=== PATIENT | male | born 1930 | race Caucasian/White ===

== ENCOUNTER 2018-10-19 02:17 | Inpatient (IN) | payer BC ==
[2018-10-19] VITALS (7 sets, daily range): BP systolic 101–145; BP diastolic 47–70
[~2018-10-19] VITALS: Ht 167.6 cm; Wt 75.3 kg
[~2018-10-19 02:17] MED LIST: OXYC10TA59 PO; TRAM50TA2 PO
--- NOTE | 2018-10-19 02:50 | NUR ---
HVAC INSTALLATION TECHNICIAN OPENING NOTES RECEIVED PT FROM [facility]. ACCOMPANIED BY FAMILY SON AND DAUGHTER. PT IS AWAKE ALERT ORIENTED X2-3 HARD OF HEARING BILATERAL HEARING DEVICES IN PLACE. BREATHING EVEN AND UNLABORED ON ROOM AIR. NO SOB NOTED. NO COMPLAINT OF PAIN OR DISCOMFORT AT THE MOMENT. IV ACCESS ON THE R FA 20G PATENT AND FLUSHING. BED IN LOWEST LOCKED POSITION, CALL LIGHT WITHIN REACH AT ALL TIMES, AWAITING ADMITTING ORDERS FROM .
[2018-10-19] MEDS ORDERED: ENAL10TA PO (03:37)
[2018-10-19] MEDS ORDERED: DIVA-78 PO ×2 (03:37)
[2018-10-19] MEDS ORDERED: CITA20TA16 PO (03:37)
[2018-10-19] MEDS ORDERED: ACETAMINOPHEN 325 MG TABLET PO PRN (04:00)
[2018-10-19] MEDS ORDERED: ONDANSETRON HCL/PF 4 MG/2 ML VIAL IVP PRN (04:00)
[2018-10-19] MEDS ORDERED: MAGNESIUM HYDROXIDE 30 ML UDC PO PRN (04:00)
[2018-10-19] MEDS ORDERED: MAG HYDROX/AL HYDROX/SIMETH 30 ML UDC PO PRN (04:00)
[2018-10-19] MEDS ORDERED: TRAMADOL HCL 50 MG TABLET PO PRN (04:00)
[2018-10-19] MEDS ORDERED: Z GUARD REMEDY 2 OZ OINT TP PRN (04:00)
[2018-10-19] MEDS: IV D5/0.45 NACL 1,000 ML IV PRN (04:17)
[2018-10-19] MEDS ORDERED: METRONIDAZOLE 500MG/ NS 100ML 100 ML IV ONE (04:26)
[2018-10-19 04:37] LABS: BASOPHILS % (AUTO) 0.5 % (0.0-2.0); HEMATOCRIT 40 % (39-51); HEMOGLOBIN 13.1 g/dL (13.5-17.5); LYMPHOCYTES # (AUTO) 1.6 /CMM (0.8-4.8); LYMPHOCYTES % (AUTO) 16.4 % (20.0-44.0); MEAN CORPUSCULAR HGB CONC 33 g/dl (31.0-36.0); MEAN CORPUSCULAR VOLUME 84 fL (80-96); MONOCYTES # (AUTO) 0.5 /CMM (0.1-1.30); MONOCYTES % (AUTO) 5.6 % (2.0-12.0); NEUTROPHILS # (AUTO) 7.6 /CMM (1.8-8.9); NEUTROPHILS % (AUTO) 77.5 % (43.0-81.0); PLATELET COUNT (AUTO) 203 /CMM (150-450); RED BLOOD CELL COUNT(AUTO) 4.77 MIL/uL (4.5-6.0); WHITE BLOOD COUNT (AUTO) 9.8 K/uL (4.3-11.0)
[2018-10-19] MEDS: METRONIDAZOLE 500MG/ NS 100ML 500 MG in PREMIX 1 EA IV SCH ×3 (04:37→21:13)
[2018-10-19 04:49] LABS: ALANINE AMINOTRANSFERASE 22 U/L (12-78); ALBUMIN 3.4 g/dL (3.4-5.0); ALKALINE PHOSPHATASE 48 U/L (46-116); ASPARTATE AMINOTRANSFERASE 17 U/L (15-37); BILIRUBIN,TOTAL 0.7 mg/dL (0.2-1.0); CALCIUM, SERUM 8.5 mg/dL (8.5-10.1); CARBON DIOXIDE 24 mmol/L (21-32); CHLORIDE 104 mmol/L (98-107); CREATININE 0.8 mg/dL (0.6-1.3); GLUCOSE 120 mg/dL (74-106); MAGNESIUM 1.9 mg/dL (1.8-2.4); PHOSPHORUS 3.6 mg/dL (2.5-4.9); POTASSIUM 4.3 mmol/L (3.5-5.1); SODIUM SERUM 139 mmol/L (136-145); TOTAL PROTEIN, SERUM 6.8 g/dL (6.4-8.2); UREA NITROGEN, BLOOD 11 mg/dL (7-18)
[2018-10-19 05:12] LABS: CHOLESTEROL 224 mg/dL (<200); HDL CHOLESTEROL 54 mg/dL (40-60); LDL 149 mg/dL (0-99); THYROID STIMULATING HORMONE 1.119 uIU/mL (0.358-3.74); TRIGLYCERIDES 107 mg/dL (30-150)
--- NOTE | 2018-10-19 06:27 | NUR ---
PACKAGE LINE RELIEF OPERATOR OPENING NOTES PT REMAINS IN BED IS AWAKE ALERT ORIENTED X2-3, FORGETFUL AND RESTLESS. BREATHING EVEN AND UNLABORED ON ROOM AIR. NO SOB NOTED. NO COMPLAINT OF PAIN OR DISCOMFORT AT THE MOMENT. IV ACCESS ON THE R FA 20G WITH D51/2NS @75ML/HR. BED IN LOWEST LOCKED POSITION, CALL LIGHT WITHIN REACH AT ALL TIMES WILL ENDORSE TO DAY NURSE FOR LU
[2018-10-19] MEDS ORDERED: PANTOPRAZOLE 40 MG VIAL IV SCH (07:30)
--- NOTE | 2018-10-19 08:00 | NUR ---
SWITCHGEAR REPAIRER OPENING NOTES Received Patient comfortable and resting in bed. A/O x 2. VS stable with no acute distress. Breathing even and unlabored on room air with no acute distress. Denies pain. Telemonitor in place and operational, reading SR with HR in the 60s. 20g PIV on RFA clean, dry, intact and flushing well with IVF D51/2NS running at 75ml/hr. Safety precautions in place. Bed locked and set to lowest position with side rails x 2 up. All needs rendered at this time. Will continue to monitor.
[2018-10-19] MEDS: DIVALPROEX SODIUM 250 MG TABLET.DR PO SCH ×2 (09:00→09:34)
[2018-10-19] MEDS: ENALAPRIL MALEATE (10 MG) 10 MG TABLET PO SCH ×2 (09:00→17:07)
[2018-10-19] MEDS ORDERED: CIPROFLOXACIN IV RTU 400 MG in PREMIX 1 EA IV SCH (09:00)
[2018-10-19] MEDS: FAMOTIDINE/PF INJ 20 MG/2 ML VIAL IV SCH ×2 (09:34→21:08)
[2018-10-19] MEDS: CIPROFLOXACIN IV RTU 400 MG in PREMIX 1 EA IV SCH ×2 (09:34→20:04)
--- NOTE | 2018-10-19 19:20 | NUR ---
RN OPENING NOTES Received patient in bed, alert, oriented x 2. Breathing even and unlabored. Not in any distress, on room air. Patient pulled out IV line. Safety measures in place; call lemus within easy reach. Bed in low, locked position, siderails x 3 up, bed alarm on. Will continue to monitor accordingly
--- NOTE | 2018-10-19 19:32 | NUR ---
DINING ROOM MAID CLOSING NOTES Patient comfortable and resting in bed. A/O x 1 with episodes of confusion. VS stable with no acute distress. Breathing even and unlabored on room air with no acute distress. Denies pain. Patient pulled out PIV. Will endorse to oncoming shift. Safety precautions in place. Bed locked and set to lowest position with side rails x 2 up. Bed alarm in place and operational. All needs rendered at this time. Will endorse plan of care to oncoming shift.
--- NOTE | 2018-10-19 19:45 | NUR ---
RN NOTES New IV line on left forearm g#24 inserted with good blood return.
--- NOTE | 2018-10-19 20:30 | NUR ---
Met with patient at bedside, states he lives locally with his son and daughter in law in a single level home. States he ambulates with a cane and semi-independent with adl's. His goes to [place] for pcp visits and follow up. His family will provide ride when discharge. Addendum: 10/19/18 at 2030 by ALEXANDER BARRERA RN Amended: Links added.
--- NOTE | 2018-10-19 20:31 | NUR ---
Met with patient at bedside, states he lives locally with his son and daughter in law in a single level home. States he ambulates with a cane and semi-independent with adl's. His goes to [place] for pcp visits and follow up. His family will provide ride when discharge. Addendum: 10/19/18 at 2030 by ALEXANDER BARRERA RN Amended: Links added.
[2018-10-19] MEDS: CITALOPRAM HYDROBROMIDE 20 MG TABLET PO SCH (21:09)
[2018-10-19] MEDS: DIVALPROEX SODIUM 500 MG TABLET.DR PO SCH (21:09)
[2018-10-19] MEDS: ZOLPIDEM TARTRATE 5 MG TABLET PO PRN (22:03)
[2018-10-20] MEDS: IV D5/0.45 NACL 1,000 ML IV PRN ×2 (00:42→20:15)
[2018-10-20] MEDS: METRONIDAZOLE 500MG/ NS 100ML 500 MG in PREMIX 1 EA IV SCH ×3 (04:25→21:04)
--- NOTE | 2018-10-20 07:05 | NUR ---
MS RN CLOSING NOTES Patient resting in bed, alert, oriented x 4. Not in any distress. Peripheral IV infusing at 75mL/hr. No acute changes overnight. All needs attended and anticipated. Safety measures in place. Will endorse LU to oncoming RN
[2018-10-20 07:21] LABS: BASOPHILS % (AUTO) 0.3 % (0.0-2.0); EOSINOPHILS % (AUTO) 2.3 % (0.0-6.0); HEMATOCRIT 37 % (39-51); LYMPHOCYTES # (AUTO) 1.8 /CMM (0.8-4.8); LYMPHOCYTES % (AUTO) 29.5 % (20.0-44.0); MEAN CORPUSCULAR HGB CONC 33 g/dl (31.0-36.0); MEAN CORPUSCULAR VOLUME 83 fL (80-96); MONOCYTES # (AUTO) 0.6 /CMM (0.1-1.30); NEUTROPHILS # (AUTO) 3.7 /CMM (1.8-8.9); NEUTROPHILS % (AUTO) 58.9 % (43.0-81.0); PLATELET COUNT (AUTO) 183 /CMM (150-450); RED BLOOD CELL COUNT(AUTO) 4.38 MIL/uL (4.5-6.0); WHITE BLOOD COUNT (AUTO) 6.3 K/uL (4.3-11.0)
[2018-10-20 07:46] LABS: CALCIUM, SERUM 7.9 mg/dL (8.5-10.1); CARBON DIOXIDE 27 mmol/L (21-32); CHLORIDE 106 mmol/L (98-107); CREATININE 0.8 mg/dL (0.6-1.3); GLUCOSE 98 mg/dL (74-106); MAGNESIUM 1.8 mg/dL (1.8-2.4); PHOSPHORUS 3.5 mg/dL (2.5-4.9); POTASSIUM 3.6 mmol/L (3.5-5.1); SODIUM SERUM 141 mmol/L (136-145); UREA NITROGEN, BLOOD 9 mg/dL (7-18)
--- NOTE | 2018-10-20 07:53 | NUR ---
MS RN OPENING NOTES Received Patient resting and asleep in bed. A/O x 1 with episodes of confusion. VS stable with no acute distress. Breathing even and unlabored on room air with no acute distress. Denies pain. 24g PIV on LFA clean, dry, intact and flushing well with D51/2NS running at 75ml/hr. Noted hearing aid on LEFT EAR. And second hearing aid in case by bedside. Safety precautions in place. Bed locked and set to lowest position with side rails x 2 up. Bed alarm in place and operational. All needs rendered at this time. Will continue to monitor.
[2018-10-20 08:00] VITALS: BP 122/64
[2018-10-20] MEDS: ENALAPRIL MALEATE (10 MG) 10 MG TABLET PO SCH ×2 (09:00→16:47)
[2018-10-20] MEDS: CIPROFLOXACIN IV RTU 400 MG in PREMIX 1 EA IV SCH ×2 (09:49→20:04)
[2018-10-20] MEDS: FAMOTIDINE/PF INJ 20 MG/2 ML VIAL IV SCH ×2 (09:50→21:11)
[2018-10-20 16:00] VITALS: BP 142/62
--- NOTE | 2018-10-20 19:50 | NUR ---
MS RN CLOSING NOTES Patient resting and asleep in bed. A/O x 1 with episodes of confusion. VS stable with no acute distress. Breathing even and unlabored on room air with no acute distress. Patient stated mild pain but refuses pain medication. Provided water and snacks and turned light off. Will endorse to oncoming shift. 24g PIV on LFA clean, dry, intact and flushing well with D51/2NS running at 75ml/hr. Noted hearing aid on RIGHT EAR. And second hearing aid in a case by bedside. Safety precautions in place. Bed locked and set to lowest position with side rails x 2 up. Bed alarm in place and operational. All needs rendered at this time. Will endorse plan of care to oncoming shift.
--- NOTE | 2018-10-20 19:51 | NUR ---
MS/RN OPENING NOTES RECEIVED PATIENT IN BED, RESPIRATIONS EVEN AND UNLABORED, RESTING COMFORTABLY,MONITOIRNG FOR ANY CHANGES, BED LOCKED, CALL LIGHTS WITHIN REACH. WILL MONITOR. RECEIVED ENDORSEMENT FROM AM RN FOR LU. IV LFA GAUGE 24 RUNNING D5 1/2 NS AT 75 ML/HR.
[2018-10-20 20:00] VITALS: BP 170/72
--- NOTE | 2018-10-20 20:01 | NUR ---
VITAL SIGNS TO BE RECHECKED, PATIENT REFUSE TO HAVE BLOOD PRESSURE RETAKEN TO MONITOR AND CHECK AGAIN .DENIES PAIN, REPORTED WANTS TO SLEEP FOR NOW.
[2018-10-20] MEDS: CITALOPRAM HYDROBROMIDE 20 MG TABLET PO SCH (22:10)
[2018-10-20] MEDS: DIVALPROEX SODIUM 500 MG TABLET.DR PO SCH (22:10)
[2018-10-21] MEDS: HYDROCODONE/APAP 5/325MG 1 EACH TABLET PO PRN ×2 (03:40→22:17)
--- NOTE | 2018-10-21 03:42 | NUR ---
PATIENT AWOKEN FROM SLEEP, REPORTED SEVERE PAIN 8/10 GENERALIZED PAIN, REPOSITIONED F OR COMFORT, AND PAIN MEDICATION NORCO 5-325 MG PO GIVEN. BP CHECK AT 156/75, PULSE 60
[2018-10-21 03:43] VITALS: BP 156/75
[2018-10-21] MEDS: METRONIDAZOLE 500MG/ NS 100ML 500 MG in PREMIX 1 EA IV SCH (04:21)
--- NOTE | 2018-10-21 06:43 | NUR ---
326-2 MS/RN NOTES PATIENT IN BED, AWAKE, ALERT X3, CAN VERBALIZE NEEDS . KEPT SKIN INTACT DRY. able to sleep during the night. on pain management monitoring, last pain medication given early in morning. iv fluids administered, monitored for any changes. will endorse to am rn for marycruz.
[2018-10-21 06:45] LABS: BASOPHILS % (AUTO) 0.3 % (0.0-2.0); EOSINOPHILS % (AUTO) 2.1 % (0.0-6.0); HEMATOCRIT 37 % (39-51); HEMOGLOBIN 12.3 g/dL (13.5-17.5); LYMPHOCYTES # (AUTO) 1.5 /CMM (0.8-4.8); LYMPHOCYTES % (AUTO) 23.7 % (20.0-44.0); MEAN CORPUSCULAR HGB CONC 33 g/dl (31.0-36.0); MEAN CORPUSCULAR VOLUME 83 fL (80-96); MONOCYTES # (AUTO) 0.6 /CMM (0.1-1.30); MONOCYTES % (AUTO) 9.5 % (2.0-12.0); NEUTROPHILS % (AUTO) 64.4 % (43.0-81.0); PLATELET COUNT (AUTO) 189 /CMM (150-450); RED BLOOD CELL COUNT(AUTO) 4.44 MIL/uL (4.5-6.0); WHITE BLOOD COUNT (AUTO) 6.2 K/uL (4.3-11.0)
[2018-10-21 07:13] LABS: CALCIUM, SERUM 7.9 mg/dL (8.5-10.1); CARBON DIOXIDE 27 mmol/L (21-32); CHLORIDE 108 mmol/L (98-107); CREATININE 0.8 mg/dL (0.6-1.3); GLUCOSE 112 mg/dL (74-106); MAGNESIUM 1.8 mg/dL (1.8-2.4); PHOSPHORUS 3.8 mg/dL (2.5-4.9); POTASSIUM 3.7 mmol/L (3.5-5.1); SODIUM SERUM 143 mmol/L (136-145); UREA NITROGEN, BLOOD 9 mg/dL (7-18)
[2018-10-21 08:00] VITALS: BP 153/76
--- NOTE | 2018-10-21 08:00 | NUR ---
MS RN OPENING NOTES Received Patient resting and asleep in bed. A/O x 2 with episodes of confusion. VS stable with no acute distress. Breathing even and unlabored on room air with no acute distress. Denies pain. 24g PIV on LFA clean, dry, intact and flushing well with D51/2NS running at 75ml/hr. Bilateral hearing aids in place. Safety precautions in place. Bed locked and set to lowest position with side rails x 2 up. Bed alarm in place and operational. All needs rendered at this time. Will continue to monitor.
[2018-10-21] MEDS: DIVALPROEX SODIUM 250 MG TABLET.DR PO SCH (09:31)
[2018-10-21] MEDS: CIPROFLOXACIN IV RTU 400 MG in PREMIX 1 EA IV SCH (09:31)
[2018-10-21] MEDS: FAMOTIDINE/PF INJ 20 MG/2 ML VIAL IV SCH ×2 (09:31→20:45)
[2018-10-21] MEDS: ENALAPRIL MALEATE (10 MG) 10 MG TABLET PO SCH ×2 (09:32→17:07)
[2018-10-21] MEDS: METRONIDAZOLE 500 MG TABLET PO SCH ×2 (13:27→20:45)
[2018-10-21 16:00] VITALS: BP 136/63
[2018-10-21] MEDS: IV D5/0.45 NACL 1,000 ML IV PRN (18:15)
--- NOTE | 2018-10-21 19:36 | NUR ---
MS RN CLOSING NOTES Patient resting and asleep in bed. A/O x 3 with episodes of confusion. VS stable with no acute distress. Breathing even and unlabored on room air with no acute distress. 24g PIV on LFA clean, dry, intact and flushing well with D51/2NS running at 75ml/hr. Bilateral hearing aids in place. Safety precautions in place. Bed locked and set to lowest position with side rails x 2 up. Bed alarm in place and operational. All needs rendered at this time. Will endorse plan of care to oncoming shift.
[2018-10-21 20:00] VITALS: BP 133/54
[2018-10-21] MEDS: CIPROFLOXACIN HCL 500 MG TABLET PO SCH (20:45)
[2018-10-21] MEDS ORDERED: CIPROFLOXACIN HCL 250 MG TABLET PO SCH (21:00)
[2018-10-21] MEDS: DIVALPROEX SODIUM 500 MG TABLET.DR PO SCH (21:11)
[2018-10-21] MEDS: CITALOPRAM HYDROBROMIDE 20 MG TABLET PO SCH (21:11)
--- NOTE | 2018-10-22 02:00 | NUR ---
RN NOTE RECEIVED AN ORDER FROM SANDIE PRATT TO STOP IV D5 1/2 NS, ORDER WAS CARRIED OUT
--- NOTE | 2018-10-22 03:00 | NUR ---
RN NOTE PATIENT REMOVED IV, REFUSED INSERTION OF NEW IV, NO S/S OF INFECTION/REDNESS NOTED, EXPLAINED ALL RISKS AND BENEFITS, STILL REFUSED, NOTIFIED SANDIE PRATT, CHARGE NURSE IS AWARE
[2018-10-22] MEDS ORDERED: HALOPERIDOL LACTATE INJ 5 MG/ML VIAL IM ONE (03:30)
--- NOTE | 2018-10-22 03:30 | NUR ---
RN NOTE EPISODE OF AGITATION NOTED, REMOVING CLOTH/SCREAMING, UNSTEADY GAIT DOES NOT WANT TO GET BACK TO BED, CALMLY APPROACHED PATIENT, EXPLAINED BENEFITS OF GETTING BACK TO BED,CHARGE NURSE IS BY BEDSIDE, NOTIFIED SANDIE PRATT, NEW ORDER GIVEN
--- NOTE | 2018-10-22 03:30 | NUR ---
RN NOTE EPISODE OF AGITATION NOTED, PATIENT REMOVED CLOTH, UNSTEADY GAIT, SCREAMING AND DOES NOT WANT TO GET BACK TO BED, CALMLY APPROACHED PATIENT TO GET BACK TO BED, EXPLAINED BENEFITS OF GETTING BACK TO BED, CHARGE NURSE IS BY BEDSIDE, NOTIFIED SANDIE PRATT, NEW ORDER IS GIVEN
[2018-10-22] MEDS: METRONIDAZOLE 500 MG TABLET PO SCH ×3 (04:04→21:24)
--- NOTE | 2018-10-22 07:59 | NUR ---
RN OPENING NOTES PT RESTING IN BED. NO COMPLAINTS OF PAIN, SOB OR DISTRESS AT THIS TIME. PT REMOVED IV LAST NIGHT AND REFUSED INSERTION OF NEW ONE. MD HOOPER AWARE. SAFETY PRECAUTIONS IN PLACE, BED IN LOWEST LOCKED POSITION, X2 SIDE RAILS UP AND CALL LIGHT WITHIN REACH. WILL CONTINUE TO MONITOR.
[2018-10-22 08:00] VITALS: BP 163/59
[2018-10-22] MEDS: ENALAPRIL MALEATE (10 MG) 10 MG TABLET PO SCH ×2 (08:54→17:04)
[2018-10-22] MEDS: DIVALPROEX SODIUM 250 MG TABLET.DR PO SCH (08:54)
[2018-10-22] MEDS: CIPROFLOXACIN HCL 500 MG TABLET PO SCH ×2 (08:54→21:23)
[2018-10-22] MEDS: FAMOTIDINE (20 MG) 20 MG TABLET PO SCH ×2 (08:54→21:24)
[2018-10-22 09:00] VITALS: BP 163/59
--- NOTE | 2018-10-22 09:30 | NUR ---
RN NOTES MD AWARE PT DOES NOT HAVE IV ACCESS AND IS REFUSING. CHANGED ORDER FOR IV PEPCID TO PO.
[2018-10-22 16:00] VITALS: BP 143/83
--- NOTE | 2018-10-22 19:15 | NUR ---
MS RN NOTES RECEIVED PT IN BED AWAKE AND ABLE TO MAKE NEEDS KNOWN. PT A/O X2 WITH PERIODS OF CONFUSION. RESPIRATIONS EVEN AND UNLABORED WITH NO S/S OF ACUTE DISTRESS OR SOB NOTED. NO COMPLAINTS OF PAIN AT THIS TIME. PT WITH NO IV ACCESS NOTED. SAFETY MEASURES IN PLACE WITH WITH NO SIDE RAILS UP X2. PT TO D/C TOMORROW. CALL LIGHT WITHIN REACH. WILL CONTINUE TO MONITOR.
--- NOTE | 2018-10-22 19:39 | NUR ---
RN CLOSING NOTES PT RESTING IN BED. PT CONFUSED. NO COMPLAINTS OF PAIN, SOB OR DISTRESS AT THIS TIME. PT REMOVED IV LAST NIGHT AND REFUSED INSERTION OF NEW ONE. MD AWARE. SAFETY PRECAUTIONS IN PLACE, BED IN LOWEST LOCKED POSITION, X3 SIDE RAILS UP AND CALL LIGHT WITHIN REACH. WILL ENDORSE TO DERMATOPATHOLOGIST NURSE FOR CONTINUITY OF CARE.
[2018-10-22 20:00] VITALS: BP 145/50
[2018-10-22] MEDS: DIVALPROEX SODIUM 500 MG TABLET.DR PO SCH (21:24)
[2018-10-22] MEDS: ZOLPIDEM TARTRATE 5 MG TABLET PO PRN (21:24)
[2018-10-22] MEDS: CITALOPRAM HYDROBROMIDE 20 MG TABLET PO SCH (21:26)
[2018-10-23] MEDS: METRONIDAZOLE 500 MG TABLET PO SCH ×3 (05:16→20:33)
--- NOTE | 2018-10-23 06:57 | NUR ---
MS RN NOTES PT IN BED SLEEPING BUT EASILY AWOKEN VERBALLY OR BY TOUCH. PT A/O X2 WITH PERIODS OF CONFUSION BUT AND ABLE TO MAKE NEEDS KNOWN. RESPIRATIONS EVEN AND UNLABORED WITH NO S/S OF ACUTE DISTRESS OR SOB NOTED THROUGHOUT SHIFT. NO COMPLAINTS OF PAIN AT THIS TIME. PT WITH NO IV ACCESS NOTED. PT KEPT CLEAN, DRY, AND COMFORTABLE. SAFETY MEASURES IN PLACE WITH WITH NO SIDE RAILS UP X2. PT TO D/C TOMORROW. CALL LIGHT WITHIN REACH. WILL ENDORSE TO ONCOMING NURSE FOR LU.
--- NOTE | 2018-10-23 07:34 | NUR ---
MS/RN OPENING NOTE PATIENT IN BED IN STABLE CONDITION. A/O X 2 WITH EPISODES OF CONFUSION AND FORGETFULNESS. NO SIGNS OF ACUTE DISTRESS. NO COMPLAIN OF PAIN OR DISCOMFORT. ALL NEEDS ATTENDED TO. CALL LIGHT WITHIN REACH. WILL CONTINUE TO MONITOR TO ENSURE SAFETY.
[2018-10-23 08:00] VITALS: BP 116/96
[2018-10-23] MEDS: CIPROFLOXACIN HCL 500 MG TABLET PO SCH ×2 (08:44→20:33)
[2018-10-23] MEDS: ENALAPRIL MALEATE (10 MG) 10 MG TABLET PO SCH ×2 (08:44→17:23)
[2018-10-23] MEDS: DIVALPROEX SODIUM 250 MG TABLET.DR PO SCH (08:44)
[2018-10-23] MEDS: FAMOTIDINE (20 MG) 20 MG TABLET PO SCH ×2 (08:44→20:33)
--- NOTE | 2018-10-23 14:02 | NUR ---
BRENDA was informed by director case Nikki Lentz to meet with her and pt's son Tomas regarding increasing S[employer] benefits. BRENDA and Nikki Lentz met with pt. bedside. BRENDA informed pt's son Tomas that he would have to reach out to [employer] office regarding increase of benefits and to reach out to the [facility] since pt. is a . Tomas stated the [facility] will assist with a maximum of $1800 for home care. Tomas also informed BRENDA and Nikki Lentz that he would like to place pt. in [facility] assisted living, dementia unit, however the cost is $7000/ month. He stated, he can afford that with the savings they have but once the savings in depleted, he might have to sell the house so he can afford to pay for the pt. to stay at [facility]. He stated, he is going to go tour the facility and will then decide.
[2018-10-23 16:00] VITALS: BP 116/80
--- NOTE | 2018-10-23 18:24 | NUR ---
MS/RN CLOSING NOTE PATIENT IN BED IN STABLE CONDITION. A/O X 2 WITH EPISODES OF CONFUSION AND FORGETFULNESS. NO SIGNS OF ACUTE DISTRESS. NO COMPLAIN OF PAIN OR DISCOMFORT. ALL NEEDS ATTENDED TO. CALL LIGHT WITHIN REACH. WILL ENDORSE TO NEXT SHIFT FOR CONTINUITY OF CARE.
--- NOTE | 2018-10-23 20:00 | NUR ---
MS RN NOTES PATIENT ASLEEP IN BED WITH NO DISTRESS NOTED. CALL LIGHT WITHIN REACH. NO C/O PAIN OR DISCOMFORT. PERIPHERAL LINE INTACT AND PATENT. BED IN LOW LOCK SETTING. BED ALARM ON AND FUNCTIONING PROPERLY. ROOM FREE OF CLUTTER AND BELONGINGS KEPT NEAR BEDSIDE. WILL CONTINUE TO MONITOR.
[2018-10-23 20:24] VITALS: BP 147/73
[2018-10-23] MEDS: HYDROCODONE/APAP 5/325MG 1 EACH TABLET PO PRN (20:34)
[2018-10-23] MEDS: CITALOPRAM HYDROBROMIDE 20 MG TABLET PO SCH (21:08)
[2018-10-23] MEDS: DIVALPROEX SODIUM 500 MG TABLET.DR PO SCH (21:09)
[2018-10-24] MEDS: METRONIDAZOLE 500 MG TABLET PO SCH ×3 (05:25→22:54)
--- NOTE | 2018-10-24 05:56 | NUR ---
MS RN NOTES PATIENT ASLEEP IN BED WITH NO DISTRESS NOTED. CALL LIGHT WITHIN REACH. ALL DUE MEDS GIVEN ORDERED WITH NO ASE. NO FURTHER C/O PAIN OR DISCOMFORT. BED IN LOW LOCK SETTING. BED ALARM ON AND FUNCTIONING PROPERLY. ROOM FREE OF CLUTTER AND BELONGINGS KEPT NEAR BEDSIDE. WILL ENDORSE TO ONCOMING SHIFT.
[2018-10-24 07:00] LABS: CARBON DIOXIDE 23 mmol/L (21-32); CHLORIDE 105 mmol/L (98-107); CREATININE 0.6 mg/dL (0.6-1.3); GLUCOSE 99 mg/dL (74-106); MAGNESIUM 1.9 mg/dL (1.8-2.4); PHOSPHORUS 3.4 mg/dL (2.5-4.9); POTASSIUM 3.7 mmol/L (3.5-5.1); SODIUM SERUM 140 mmol/L (136-145); UREA NITROGEN, BLOOD 16 mg/dL (7-18)
[2018-10-24 07:11] LABS: BASOPHILS % (AUTO) 0.4 % (0.0-2.0); EOSINOPHILS % (AUTO) 2.4 % (0.0-6.0); HEMATOCRIT 38 % (39-51); HEMOGLOBIN 12.7 g/dL (13.5-17.5); LYMPHOCYTES # (AUTO) 1.4 /CMM (0.8-4.8); LYMPHOCYTES % (AUTO) 25.3 % (20.0-44.0); MEAN CORPUSCULAR HGB CONC 34 g/dl (31.0-36.0); MEAN CORPUSCULAR VOLUME 82 fL (80-96); MONOCYTES # (AUTO) 0.7 /CMM (0.1-1.30); NEUTROPHILS # (AUTO) 3.3 /CMM (1.8-8.9); NEUTROPHILS % (AUTO) 59.9 % (43.0-81.0); PLATELET COUNT (AUTO) 213 /CMM (150-450); RED BLOOD CELL COUNT(AUTO) 4.63 MIL/uL (4.5-6.0); WHITE BLOOD COUNT (AUTO) 5.5 K/uL (4.3-11.0)
[2018-10-24 08:00] VITALS: BP 133/51
--- NOTE | 2018-10-24 08:00 | NUR ---
FAMILY AT BEDSIDE TO TALK WITH PHYSICIAN AND SOCIAL. WILL INFORM AND COLLABORATE.
[2018-10-24] MEDS: FAMOTIDINE (20 MG) 20 MG TABLET PO SCH ×2 (09:25→22:55)
[2018-10-24] MEDS: CIPROFLOXACIN HCL 500 MG TABLET PO SCH ×2 (09:25→22:54)
[2018-10-24] MEDS: DIVALPROEX SODIUM 250 MG TABLET.DR PO SCH (09:26)
[2018-10-24] MEDS: ENALAPRIL MALEATE (10 MG) 10 MG TABLET PO SCH ×2 (09:26→17:09)
[2018-10-24] MEDS: MENTHOL/CETYLPYRD (CEPACOL) 1 LOZ LOZENGE PO PRN ×2 (11:08→17:07)
[2018-10-24 16:00] VITALS: BP 119/49
--- NOTE | 2018-10-24 19:20 | NUR ---
RN PM OPENING NOTE. BEDSIDE REPORT RECIEVED FROM REBEKA CHAVEZ. PATIENT IN BED IN STABLE CONDITION. A/O X 2, FORGETFUL. POC REVEWED QUESTIONS CONCERNS ADDRESSED. PATIENT IS UPSET BECAUSE OF POSSIBLE DISCHARGE TO ASSISTED FACILITY. PATIENT STATES "I WANT TO GO HOME. I PAY FOR MY HOUSE AND THAT IS WHERE I WANT TO GO." PATIENT INFORMED THAT THEY WILL BE WORKING ON A SAFE DISCHARGE TOMORROW AND HE WILL BE WITH US FOR THE REST OF EVENING. VERBALIZED UNDERSTANDING. NO SIGNS OF DISTRESS. NO COMPLAIN OF PAIN OR DISCOMFORT. CALL LIGHT WITHIN REACH. BED ALARM ACTIVE.
--- NOTE | 2018-10-24 19:33 | NUR ---
PATIENT IN BED IN STABLE CONDITION. A/O X 2, FORGETFUL. NO SIGNS OF DISTRESS. NO COMPLAIN OF PAIN OR DISCOMFORT. ALL NEEDS ATTENDED TO. CALL LIGHT WITHIN REACH. WILL ENDORSE TO NEXT SHIFT FOR CONTINUITY OF CARE. D/C IN AM
[2018-10-24 20:00] VITALS: BP 113/60
[2018-10-24] MEDS: DIVALPROEX SODIUM 500 MG TABLET.DR PO SCH (22:54)
[2018-10-24] MEDS: CITALOPRAM HYDROBROMIDE 20 MG TABLET PO SCH (22:55)
--- NOTE | 2018-10-24 23:13 | NUR ---
rn assignment change. report given to Ellen liu for continuity of care. questions concerns addressed. patient seen in bed with eyes closed bed rails x3 bed alarm active call light in reach.
[2018-10-25] MEDS: METRONIDAZOLE 500 MG TABLET PO SCH ×2 (05:30→12:59)
[2018-10-25 08:00] VITALS: BP 119/61
[2018-10-25] MEDS: ENALAPRIL MALEATE (10 MG) 10 MG TABLET PO SCH (08:39)
[2018-10-25] MEDS: CIPROFLOXACIN HCL 500 MG TABLET PO SCH (08:39)
[2018-10-25] MEDS: DIVALPROEX SODIUM 250 MG TABLET.DR PO SCH (08:39)
[2018-10-25] MEDS: FAMOTIDINE (20 MG) 20 MG TABLET PO SCH (08:39)
[2018-10-25] MEDS: MENTHOL/CETYLPYRD (CEPACOL) 1 LOZ LOZENGE PO PRN (12:59)
[2018-10-25 16:00] VITALS: BP 109/55
--- NOTE | 2018-10-25 17:45 | NUR ---
Patient cleared for d/c to home with home health by MD. Patient a/o x2, forgetful. VS are stable and within baseline, patient on room air saturation 98%. Discharge instruction and education provided to son Tomas: verbalized understanding. Patient will f/u with PCP in one week. Patient had no IV assess. ID wrist band removed. ALL d/c papers provided: signed by patients son. Valuable form signed: all belongings were taken home a day before d/c. Patient safely transferred to the [facility] car accompanied by TAMMY Arias, son and pt's
== END 2018-10-25 17:45 | disposition home health service (06) | DRG 392 ==
LOC: TELE 02:18 → MED 19:11
PROVIDERS: ADMIT Nurse Practitioner Acute Care; ATTEND Nurse Practitioner Acute Care
DX: K57.92 Diverticulitis of intestine, part unspecified, without perforation or abscess without bleeding (principal); F33.2 Major depressive disorder, recurrent severe without psychotic features; I10 Essential (primary) hypertension; N40.0 Benign prostatic hyperplasia without lower urinary tract symptoms; F03.90 Unspecified dementia, unspecified severity, without behavioral disturbance, psychotic disturbance, mood disturbance, and anxiety; G89.29 Other chronic pain; M54.9 Dorsalgia, unspecified; Z88.2 Allergy status to sulfonamides; Z88.0 Allergy status to penicillin; G62.9 Polyneuropathy, unspecified; F39 Unspecified mood [affective] disorder
CPT/HCPCS: 36415; 80048-TC; 80053-TC; 80061-TC; 80164-TC; 83735-TC; 84100-TC; 84443-TC; 85025-TC; 87040-TC; 87081-TC; 97116-TC; 97530-TC; A4216; G0378; J0744; J3490